=== PATIENT | male | born 2000 | race Caucasian/White ===

== ENCOUNTER 2023-06-22 15:01 | Emergency (ER) | payer OTHER ==
[2023-06-22 18:29] LABS: Bilirubin Neg (Negative); Blood, Urine Negative (Negative); Clarity Clear (Clear); Glucose, Urine (Dipstick) Normal (Negative); Ketone, Urine Negative (Negative); Leukocyte Negative (Negative); Nitrite Negative (Negative); Protein, Urine (Dipstick) Negative (Neg-Trace); Specific Gravity, Urine 1.015 (1.005-1.030); Urobilinogen Normal mg/dL (Less than 2)
[2023-06-22 18:58] LABS: Bacteria/HPF Rare-Few HPF (None Seen); CAUTI Indications for Culture Pelvic or flank pain; RBC/HPF 0-3 HPF (0-3); Squamous Epithelial None Seen HPF (0-3); WBC/HPF 0-3 HPF (0-3)
[2023-06-22 19:00] LABS: Urine Culture Reflex No No
== END 2023-06-22 19:10 | disposition home or self-care (01) ==
LOC: CSHERS 15:01
DX: S30.822A Blister (nonthermal) of penis, initial encounter (principal); X58.XXXA Exposure to other specified factors, initial encounter
CPT/HCPCS: 81001; 99283